=== PATIENT | male | born 1950 | race Caucasian/White ===

== ENCOUNTER 2024-07-25 15:11 | Emergency (ER) | payer MEDICARE, SELFPAY ==
[2024-07-25 15:11] VITALS: BP 146/74; PULSE 98; RESP 18; TEMP 37.1; O2SAT 96
--- NOTE | 2024-07-25 15:15 | ED.ALLEREA ---
HPI - Allergic Reaction General Chief complaint: Allergic Reaction Stated complaint: BEE STING Source: patient Mode of arrival: ambulatory Limitations: no limitations History of Present Illness HPI narrative: 73 year old male presents to the Emergency Department complaining of allergic reaction to yellow jacket sting. States he was stung 30 minutes ago. He is having erythema to skin, some urticaria and now starting to have some chest tightness /breathing. Denies any swelling in throat. 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 He has had reactions to stings in the past, but not this bad. MD complaint: allergic reaction Onset (ago): minute(s) Exposure: insect bite (yellow jacket sting) Symptoms: rash (diffuse erythema to skin, itching, tiny hives) and itching Severity: moderate Treatment prior to arrival: benadryl (25 mg po) Related Data Home Medications Medication Instructions Recorded Confirmed ezetimibe 10 mg tablet 10 mg PO DAILY 07/25/24 07/25/24 famotidine 40 mg tablet 40 mg PO DAILY 07/25/24 07/25/24 fluoxetine 10 mg capsule 10 mg PO DAILY 07/25/24 07/25/24 fluticasone propionate 50 50 mcg intranasal DAILY 07/25/24 07/25/24 mcg/actuation nasal spray,suspension irbesartan 150 mg tablet 150 mg PO DAILY 07/25/24 07/25/24 rosuvastatin 5 mg tablet 5 mg PO DAILY 07/25/24 07/25/24 sertraline 25 mg tablet 25 mg PO DAILY 07/25/24 07/25/24 tamsulosin 0.4 mg capsule 0.4 mg PO DAILY 07/25/24 07/25/24 Allergies Allergy/AdvReac Type Severity Reaction Status Date / Time Unable to Assess Allergy Verified 07/25/24 15:16 Review of Systems Review of Systems: All systems reviewed & are unremarkable except as noted in HPI and below Constitutional: Constitutional: Reports as per HPI, Denies chills, Denies fever(s) and Denies weakness Eyes: Eyes: Reports as per HPI and Denies change in vision ENT: Reports system reviewed and no additional complaints, except as documented and Denies dysphagia Cardiovascular: Cardiovascular: Reports as per HPI, Denies chest pain, Denies rapid heart rate and Denies slow heart rate Respiratory: Respiratory: Reports as per HPI, Denies chest congestion, Denies cough, Denies dyspnea and Denies wheezing Gastrointestinal: Gastrointestinal: Reports as per HPI, Denies abdominal pain, Denies diarrhea, Denies nausea and Denies vomiting Genitourinary: Genitourinary: Reports no additional male genitourinary complaints, Denies dysuria and Denies urinary frequency Musculoskeletal: Musculoskeletal: Reports no additional musculoskeletal complaints Integumentary/Breasts: Skin/Breast: Reports system reviewed and no additional complaints, except as docu, Reports pruritus and Reports erythema Neurologic: Reports system reviewed and no additional complaints, except as documented, Denies syncope, Denies focal weakness and Denies weakness Allergic/Immunologic: Allergic/Immunologic: Reports no additional allergic/immunologic complaints, Denies lip swelling, Denies throat swelling, Denies tongue swelling and Denies wheezing Exam Const: General: healthy appearing Nutritional Appearance: well nourished Orientation/consciousness: patient oriented x3 Limitations: no limitations HENMT: Head: normal to inspection Ears: external ears normal Face/Nose/Sinus: Normal external nose present Face and sinus: normal facial exam Mouth: Yes Normal oral and palatal mucosa present Throat: posterior oropharynx normal Eyes: Conjunctivae: conjunctivae normal Pupils: Equal, round and reactive pupils present EOM: EOMs intact bilaterally Neck: Neck: normal visual inspection, no lymphadenopathy and no meningeal signs Chest: Chest palpation & inspection: normal inspection of the chest Resp: Effort & Inspection: normal respiratory effort Auscultation: clear to auscultation bilaterally Cardio: Rate: regular rate Rhythm: regular rhythm Heart sounds: no murmurs GI: Inspection: non-distended GI Palp: Yes Soft to palpation and No Te
[2024-07-25] MEDS: diphenhydrAMINE HCl INJ 50 MG/ML VIAL 100 MG IM (15:21)
[2024-07-25] MEDS: EPINEPHrine HCL INJ 1 MG/ML AMPUL 0.3 MG SUB-Q (15:22)
[2024-07-25] MEDS: methylPREDNISolone ACETATE 40 MG/ML VIAL 80 MG IM (15:25)
[2024-07-25 15:30] VITALS: BP 127/73; PULSE 82; RESP 16; O2SAT 96
[2024-07-25 16:00] VITALS: BP 135/64; PULSE 70; RESP 17; O2SAT 97
[2024-07-25 16:30] VITALS: BP 113/60; PULSE 68; RESP 17; O2SAT 98
[2024-07-25 16:46] VITALS: BP 113/60; PULSE 68; RESP 17; O2SAT 98
== END 2024-07-25 16:46 | disposition home or self-care (01) ==
PROVIDERS: Emergency Provider Emergency Medicine
DX: T63.461A Toxic effect of venom of wasps, accidental (unintentional), initial encounter (principal); L50.9 Urticaria, unspecified; Z79.899 Other long term (current) drug therapy
CPT/HCPCS: 96372; 99284; J0171; J1010; J1200